=== PATIENT | female | born 1970 | race Caucasian/White ===

== ENCOUNTER 2020-03-28 15:02 | Inpatient (IN) | payer OTHER, MEDICAID ==
[2020-03-28] MEDS ORDERED: Azithromycin 250 MG TAB ONE (16:32)
[2020-03-28] MEDS ORDERED: Magnesium 2 GM/50 ML BAG (IN WATER) ONE (16:32)
[2020-03-28] MEDS ORDERED: Acetaminophen 325 MG TAB ONE (16:32)
[2020-03-28] MEDS ORDERED: predniSONE 20 MG TAB ONE (16:32)
[2020-03-28] MEDS ORDERED: cefTRIAXone\\ROCEPHIN 2 GM VIAL ONE (16:32)
[2020-03-28] MEDS ORDERED: Ibuprofen 200 MG TAB ONE (16:32)
--- NOTE | 2020-03-28 17:02 | RAD ---
EXAM: CHEST ONE VIEW: 03/28/20 HISTORY: COPD. Low O2 saturation, vomiting, diarrhea. Poor inspiratory effort with some minimal vascular crowding in the mid and lower lung zones. Heart si ze is borderline enlarged. No confluent lobar pneumonia, acute edema, or significant pleural effusion . IMPRESSION: Poor inspiratory effort with some mild vascular crowding in the bases. No significant acute process. POS: RRE
[2020-03-28 17:17] LABS: #Eosinphils 0.4 thou/uL (0.0-0.7); #Lymphocytes 2.1 thou/uL (1.20-3.40); #Monocytes 0.5 thou/uL (0.11-0.59); #Neutrophils 4.7 thou/uL (1.40-6.50); %Basophils 0.6 % (0.0-1.0); %Eosinophils 5.7 % (0.0-10.0); %Lymphocytes 26.4 % (21.0-51.0); %Monocytes 6.7 % (0.0-10.0); %Neutrophils 60.7 % (42.0-75.0); Mean Corpuscular HGB CONC 31.6 g/dL (32.0-36.0); Mean Corpuscular Hemoglobin 28.5 pg (27.0-31.0); Mean Platelet Volume 10.4 fL (7.4-10.4); Platelet Count 139 thou/uL (130-400); RBC Distribution Width 15.5 % (11.5-14.5); Red Blood Cell (RBC) Count 5.98 mill/uL (4.20-5.40); White Blood Cell (WBC) Count 7.8 thou/uL (4.8-10.8)
--- NOTE | 2020-03-28 17:28 | CT ---
CT OF BRAIN PERFORMED WITHOUT CONTRAST ENHANCMENT: 03/28/20 HISTORY: Headache. There is motion artifact on this examination. The ventricular and cisternal system is within normal l imits. There are no signs of intracerebral hemorrhage or extra-axial fluid collections. The mastoid a ir cells are clear. There is extensive opacification of the ethmoid air cells. Also, bilateral maxill lopez sinus mucosal disease. IMPRESSION: 1. Maxillary and ethmoid sinus disease. 2. No acute intracranial abnormalities. POS: ODELL
[2020-03-28 17:52] LABS: ALT (SGPT) 13 U/L (8-55); AST (SGOT) 13 U/L (5-34); Albumin 4.2 g/dL (3.5-5.0); Alkaline Phosphatase 134 U/L (40-110); Anion Gap 16 mmol/L (10-20); BUN (Urea Nitrogen) 11 mg/dL (7.0-18.7); Bilirubin, Total 0.2 mg/dL (0.2-1.2); Calc. Creatinine Clearance 0 mL/min (70-130); Carbon Dioxide 27 mmol/L (22-29); Chloride 101 mmol/L (98-107); Estimated GFR-MDRD 77; Globulin 3.6 g/dL (2.4-3.5); Glucose 105 mg/dL (70-105); Potassium 4.3 mmol/L (3.5-5.1); Protein, Total 7.8 g/dL (6.0-8.3); Sodium 140 mmol/L (136-145)
--- NOTE | 2020-03-28 17:55 | PDOC.FPRHP ---
- History of Present Illness Chief Complaint: Dyspnea History of Present Illness: This is a 49yo F with PMH significant for COPD on 2 L of O2 at home presenting to the ER with CC of worsening cough and SOB. She states symptoms started about a week ago. She reports that her chronic COPD is poorly controlled. She reports cough that is non -productive. Characterizes symptoms as tightness in her chest , cough, wheezing, feeling overall poor. Endorses taking inhaler medications daily as well as flonase. She has a nebulizer for as needed. Unsure which inhaler/nebulizer medications she takes. Symptoms are worsened with walking. Denies fever or chills. Endorses severe headache as well that she states she gets every time she gets sick. Denies any chest pain. Endorses nausea, vomiting , diarrhea that started 1 day ago. She states she has a "problem" with this anyway but she seemed to have more of this over the last 2 days. Denies any sore throat, COVID exposure of contacts. Has been travelling to [place] and [place] in an RV. has not been feeling sick at all. He puts alarms for the shelter. Smokes less than 1/2 pack/day for 30 years - she has been trying to cut back. Patient is from [place]. ED Course: tylenol 650mg, ibuprofen 600mg, rocephin 2g IV, azithromycin 500mg, prednisone 60mg, Mg 2g IV, duoneb 3mL - Allergies/Adverse Reactions Allergies Allergy/AdvReac Type Severity Reaction Status Date / Time codeine Allergy Unknown Unverified 03/28/20 19:36 - History PMHx: COPD, MA x 1 s/p stent, HLD, HTN, JJ, bipolar, borderline personality, anxiety PSHx: c -section, tubal ligation FHx: non-contributory Social: current tobacco user - smokes 1/2 pack/day for 30 years; denies alcohol or drug use. Allergies: codeine - Review of Systems General: denies: fever/chills, weight/appetite/sleep changes, night sweats, fatigue ENT: denies: nasal congestion, rhinorrhea Respiratory: reports: cough, shortness of breath, exercise intolerance. denies : congestion Cardiovascular: denies: chest pain, palpitation, edema, paroxysmal nocturnal dyspnea, orthopnea Gastrointestinal: denies: nausea, vomiting, diarrhea, constipation, abdominal pain Skin: denies: rashes Musculoskeletal: denies: pain, tenderness Neurological: denies: weakness Psychological: reports: anxiety - Vital signs BP: 141/102 HR: 90 RR: 20 Tmax: 98.5 Pox: 90% on 4L Wt: 102 kg - Physical Exam -Constitutional: mild distress HEENT: normocephalic and atraumatic, PERRLA, EOMI Neck: FROM, no JVD Heart: RRR, normal S1/S2, no murmurs/rubs/gallops, pulses present -Lungs: diffuse wheezes heard bilaterally; poor inspiratory effort Abdomen: soft, non-tender, bowel sounds present, no masses/distention Musculoskeletal: normal structure, ROM grossly normal Neurological: no focal deficit Skin: no rash/lesions, good turgor, capillary refill <2 seconds Heme/Lymphatic: no purpura, no petechia Psychiatric: normal mood and affect -Psychiatric: Pt is alert and oriented but she is having difficulty with word finding, she endorsed being confused, she follows commands FMR H&P: Results - Labs Result Diagrams: 03/28/20 17:02 03/28/20 17:02 Lab results: WBC 7.8 thou/uL (4.8-10.8) 03/28/20 17:02 Hgb 17.0 g/dL (12.0-16.0) H 03/28/20 17:02 Hct 53.8 % (36.0-47.0) H 03/28/20 17:02 MCV 90.0 fL (78.0-98.0) 03/28/20 17:02 Plt Count 139 thou/uL (130-400) 03/28/20 17:02 Neutrophils % 60.7 % (42.0-75.0) 03/28/20 17:02 Sodium 140 mmol/L (136-145) 03/28/20 17:02 Potassium 4.3 mmol/L (3.5-5.1) 03/28/20 17:02 Chloride 101 mmol/L (98-107) 03/28/20 17:02 Carbon Dioxide 27 mmol/L (22-29) 03/28/20 17:02 BUN 11 mg/dL (7.0-18.7) 03/28/20 17:02 Creatinine 0.79 mg/dL (0.6-1.1) 03/28/20 17:02 Glucose 105 mg/dL (70-105) 03/28/20 17:02 Calcium 9.0 mg/dL (7.8-10.44) 03/28/20 17:02 Total Bilirubin 0.2 mg/dL (0.2-1.2) 03/28/20 17:02 AST 13 U/L (5-34) 03/28/20 17:02 ALT 13 U/L (8-55) 03/28/20 17:02 Alkaline Phosphatase 134 U/L (40-110) H 03/28/20 17:02 Serum Total Protein 7.8 g/dL (6.0-8.3) 03/28/20 17:02 Albumin 4.2 g/dL (3.5-5.0) 03/28/20 17:02 - EKG Interpretation EKG: NSR - Radiology Interpretation Chest x-ray Status: image reviewed by me, report reviewed by me Additional comment: No acute processes, vascular crowding in the bases CT scan - head Status: image reviewed by me, report reviewed by me Additional comment: Sinus disease, no acute brain abnormalities FMR H&P: A/P - Problem List (1) COPD exacerbation Current Visit: Yes Status: Acute Code(s): J44.1 - CHRONIC OBSTRUCTIVE PULMONARY DISEASE W (ACUTE) EXACERBATION (2) Bipolar disorder Current Visit: Yes Status: Acute Code(s): F31.9 - BIPOLAR DISORDER, UNSPECIFIED (3) Anxiety Current Visit: Yes Status: Acute Code(s): F41.9 - ANXIETY DISORDER, UNSPECIFIED (4) HLD (hyperlipidemia) Current Visit: Yes Status: Acute Code(s): E78.5 - HYPERLIPIDEMIA, UNSPECIFIED (5) HTN (hypertension) Current Visit: Yes Status: Acute Code(s): I10 - ESSENTIAL (PRIMARY) HYPERTENSION (6) CAD (coronary artery disease) Current Visit: Yes Status: Acute Code(s): I25.10 - ATHSCL HEART DISEASE OF [place] CORONARY ARTERY W/O ANG PCTRS (7) Tobacco abuse Current Visit: Yes Status: Acute Code(s): Z72.0 - TOBACCO USE - Plan Pt is a 49 yo female here for a COPD exacerbation: # COPD Exacerbation Allergies vs Smoking vs COVID - ceftriaxone, azithromycin - prednisone daily x 5 days min - give magnesium if necessary - duoneb q4 scheduled, q2 prn - restart home medications - start montelukast as pt is not from area can could be secondary to allergies - COVID pending, pending Ferritin, LDH, CRP; consider D-Dimer # Headache - tylenol - headache protocol, bolus fluid # HTN - continue home meds # HLD - pt needs to start statin therapy # CAD - continue home meds, start statin therapy # Anxiety - continue home meds # Bipolar - continue home meds Dispo: admit inpatient telemetry Fluids: LR 120 mls/hr Diet: HH VTE: lovenox Code: DNR FMR H&P: Upper Level - Plan Date/Time: 03/28/201753 IRebekah, have evaluated this patient and agree with findings/plan as outlined by sports management intern resident. Pertinent changes/additions are listed here. This is a 49yo F with PMH significant for uncontrolled COPD on 2L home O2. She states that she has had worsening SOB and cough over the last week. She started with symptoms last week with cough and sneezing. Of note, she is from [place] and has been traveling across the country with her in an RV - whom works putting alarm systems in jails. She endorses non-productive cough. Denies fever. Endorses chills. States has not had any symptoms. Patient has been in [facility] for the last 4 weeks or so. She also endorse NVD over the last few days. She states she has been taking inhaler/neb medications at home, but patient was unsure what medications she was on. She is long time smoker. Patient reports that she has had exacerbations of COPD in the past but this one seems worse. She also states that she usually gets confused when she is sick. Endorses headache. Please see sports management intern note for full history and past medical histories. ROS negative besides those mentioned above. PE: General: mild distress, obese Resp: bilateral diffuse wheezing on insp/exp; poor inspiratory efforts Cardio: RRR, no murmurs, rubs or gallops Abd: soft, non distended, central obesity MSK: FROM Psych: alert, knows name, place, time, but seems confused as to condition/ medications/other details of story. Poor insight and judgement. A&P: Admit patient to tele, inpatient for COPD exacerbation with hx of MA. Will treat COPD exacerbation with duonebs q4hr JOHN, prednisone x 5 days, azithromycin and rocephin for abx coverage. Procal pending. Can consider discontinuing if negative Increased O2 requirement per ER, but no recorded hypoxia. Home O2 2L and satting 93% on 4L in the ER. Will continue to monitor and ween as tolerated. Keep O2 sats between 88-92%. ABG pending due to patient clinical appearance. 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 COVID swab pending along with ferritin, LDH, CRP, no lymphopenia noted. Droplet precautions until swab results. For patient's confusion on exam - CT head negative, but will add UDS and alcohol to rule this out. ABG pending as well. Patient hemoconcentrated - will give a 1L bolus and continue maintenance. Continue home medications for chronic conditions. Patient DNR/DNI - discussed at length with patient who re-iterated this decision. Case discussed with Dr. Hernandez Addendum - Attending - Attending Attestation Date/Time: 03/28/20 3386 I personally evaluated the patient and discussed the management with Dr. Mendoza and Dr. Salamanca I agree with the History, Examination, Assessment and Plan documented above with any addition or exceptions noted below. 49 yo female with multiple chronic conditions especially end-stage COPD and cardiovascular disease presents to ER for progressive illness over the past wk. Initially symptoms started 3 wks ago. Symptoms have included fatigue, fever, SOB , nausea, diarrhea, headache, malise. Her and her are from out of town. Have been here for 1 month due to his job. No prior medical care this pass month. Today reported N/V and diarrhea were too much for her to continue to deal with at home. Reported her main concern today was not SOB. Denied sputum but reports cough. Solument on exam for me. VS, labs, and imaging reviewed. Requiring 4 L O2 via NC - COPD exacerbation: End stage. Continue inhalers. John DUO neb inhaler equivalent - combivent. Continue antibiotics. Adjust O2 as indicated. Hx of COPD with possible asthma component as well. - Acute on chronic respiratory failure: ABG ordered. Concern for chronic CO2 retainer with acute worsening due to solumnent state. Is easily arrousable but falls asleep during questioning. States this is very common for her when she is admitted. Adamant about DNR status. Has concerns about BiPAP if needed. Repeat ABG as needed. - Untreated JJ: Complicating acute respiratory problems. Now with headache. - COVID19 PUI: No directly known exposure but risk present. Concerning symptoms. COVID swab ordered. Will need to discuss BiPAP policy with ICU director to see if okay to use. Needs droplet and contact precautions. Per patient symptoms have been progressive over the past 3 wks and significant changes over the past week. Out of window for treatment? - Cardiovascular dz: Monitor. Trend trop. Adjust home meds as needed. - ppx: lovenox and PPI due to risk. - Consult pulm - admit to [facility]
[2020-03-28 18:14] LABS: CKMB 1.1 ng/mL (0-6.6)
[2020-03-28] MEDS ORDERED: Albuterol 200 PUFF (6.7GM INHALER) INH PRN (19:39)
[2020-03-28] MEDS ORDERED: Lactated Ringer's 1,000 ML IV SCH ×2 (19:45)
[2020-03-28] MEDS ORDERED: Ondansetron PF 4 MG/2 ML Vial ONE (19:55)
[2020-03-28] MEDS ORDERED: Aspirin Chewable 81 MG TAB ONE (19:55)
[2020-03-28] MEDS ORDERED: Ondansetron ORAL SOLN. 4 MG/5 ML UDCUP PO PRN (20:50)
[2020-03-28] MEDS ORDERED: Ketorolac Tromethamine 10 MG TAB PO SCH (21:00)
[2020-03-28] MEDS ORDERED: Dextrose 5%-Lactated Ringers 1,000 ML IV SCH (21:30)
[2020-03-28 21:32] LABS: Analyzer IN Cardio ER; Base Excess (BEa) 1.2 mEq/L (-2.0 to +3.0); Calcium, Ionized (arterial) 1.23 mmol/L (1.12-1.30); Carboxyhemoglobin (COHb) 5.7 gm% (0.0-3.0); Hemoglobin (Hb) 17.3 g/dL (12.0-16.0); Potassium - ABG Lab 4.44 mmol/L (3.70-5.30)
[2020-03-28 21:33] LABS: CO2 Tension 78.8 mmHg (35.0-45.0); O2 Tension (PaO2), arterial 54.5 mmHg (80.0-100.0); pH, Arterial 7.23 (7.35-7.45)
[2020-03-28 21:49] LABS: Troponin I 0.033 ng/mL (< 0.028)
[2020-03-28] MEDS ORDERED: Lorazepam 2 MG/ML VIAL ONE (22:34)
[2020-03-29] MEDS ORDERED: cefTRIAXone Sodium 1 MG in Syringe 0 ML IVPB SCH (00:07)
[2020-03-29] MEDS ORDERED: Enoxaparin Sodium 40 MG/0.4 ML SYRINGE SC SCH (00:15)
[2020-03-29] MEDS ORDERED: Montelukast Sodium 10 mg Tablet PO SCH ×2 (00:15→21:00)
[2020-03-29] MEDS: Lactated Ringer's 1,000 ML IV SCH ×4 (00:20→23:10)
[2020-03-29 00:32] VITALS: BMI 33.9
[2020-03-29 00:49] LABS: Troponin I 0.033 ng/mL (< 0.028)
[2020-03-29 03:31] LABS: #Eosinphils 0.1 thou/uL (0.0-0.7); #Lymphocytes 1.3 thou/uL (1.20-3.40); #Monocytes 0.2 thou/uL (0.11-0.59); #Neutrophils 6.2 thou/uL (1.40-6.50); %Basophils 0.4 % (0.0-1.0); %Eosinophils 0.9 % (0.0-10.0); %Lymphocytes 16.7 % (21.0-51.0); %Monocytes 3.1 % (0.0-10.0); %Neutrophils 78.9 % (42.0-75.0); Hemoglobin 15.8 g/dL (12.0-16.0); Mean Corpuscular HGB CONC 30.9 g/dL (32.0-36.0); Mean Corpuscular Volume 90.5 fL (78.0-98.0); Mean Platelet Volume 10.5 fL (7.4-10.4); Platelet Count 130 thou/uL (130-400); RBC Distribution Width 15.8 % (11.5-14.5); Red Blood Cell (RBC) Count 5.63 mill/uL (4.20-5.40); White Blood Cell (WBC) Count 7.9 thou/uL (4.8-10.8)
[2020-03-29 04:09] LABS: ALT (SGPT) 10 U/L (8-55); AST (SGOT) 15 U/L (5-34); Albumin 3.6 g/dL (3.5-5.0); Alkaline Phosphatase 115 U/L (40-110); Anion Gap 15 mmol/L (10-20); BUN (Urea Nitrogen) 10 mg/dL (7.0-18.7); Bilirubin, Total Less than 0.2 mg/dL (0.2-1.2); Calc. Creatinine Clearance 157 mL/min (70-130); Calcium 9.2 mg/dL (7.8-10.44); Carbon Dioxide 27 mmol/L (22-29); Chloride 99 mmol/L (98-107); Estimated GFR-MDRD 90; Globulin 3.9 g/dL (2.4-3.5); Glucose 103 mg/dL (70-105); Potassium 5.1 mmol/L (3.5-5.1); Protein, Total 7.5 g/dL (6.0-8.3); Sodium 136 mmol/L (136-145)
[2020-03-29] MEDS ORDERED: Nitroglycerin 50 MG/250 ML BOT 250 ML IVPB SCH (06:30)
[2020-03-29 06:46] LABS: Amphetamine Not Detected (NotDetected); Barbiturates Screen Not Detected (NotDetected); Benzodiazepine Screen Detected (NotDetected); Cocaine Metabolite Screen Not Detected (NotDetected); Medtox Control Line Valid? VALID (VALID); Medtox Reader # READER 4; Methadone Not Detected (NotDetected); Methamphetamine Not Detected (NotDetected); Opiate Screen Not Detected (NotDetected); Oxycodone Screen Not Detected (NotDetected); Phencyclidine (PCP) Not Detected (NotDetected); THC/Cannabinoid Screen Detected (NotDetected); Tricyclic Screen Detected (NotDetected)
--- NOTE | 2020-03-29 07:28 | PDOC.FM ---
- Subjective Subjective: Pt states her breathing is about the same. She denies productive cough but does state she has been coughing more. - Objective MAR Reviewed: Yes Vital Signs & Weight: Vital Signs (12 hours) Temp Pulse Ox 03/29/20 00:46 94 L 03/29/20 00:00 97.2 F L Weight Weight 101.151 kg Most Recent Monitor Data Heart Rate from ECG 102 NIBP 178/103 NIBP BP-Mean 128 Respiration from ECG 23 SpO2 91 Result Diagrams: 03/29/20 03:03 03/29/20 03:03 Phys Exam - Physical Examination Mild distress HEENT: moist MMs Neck: no JVD Inspiratory and expiratory wheezing anteriorly, worse on the left Cardiovascular: RRR, no significant murmur Gastrointestinal: soft, no distention, positive bowel sounds Mild tenderness to palpation on the right side, no rebound Musculoskeletal: no edema, pulses present Neurological: moves all 4 limbs Psychiatric: A&O x 3 Skin: cap refill <2 seconds Dx/Plan (1) Anxiety Code(s): F41.9 - ANXIETY DISORDER, UNSPECIFIED Status: Acute (2) Bipolar disorder Code(s): F31.9 - BIPOLAR DISORDER, UNSPECIFIED Status: Acute (3) CAD (coronary artery disease) Code(s): I25.10 - ATHSCL HEART DISEASE OF [place] CORONARY ARTERY W/O ANG PCTRS Status: Acute (4) COPD exacerbation Code(s): J44.1 - CHRONIC OBSTRUCTIVE PULMONARY DISEASE W (ACUTE) EXACERBATION Status: Acute (5) HLD (hyperlipidemia) Code(s): E78.5 - HYPERLIPIDEMIA, UNSPECIFIED Status: Acute (6) HTN (hypertension) Code(s): I10 - ESSENTIAL (PRIMARY) HYPERTENSION Status: Acute (7) Tobacco abuse Code(s): Z72.0 - TOBACCO USE Status: Acute - Plan Plan: COPD exacerbation -Continue prednisone -Procal negative, will discontinue abx for now -Continue duonebs, Bipab -After med rec, restart home inhalers -Continue montelukast -Covid Pending Headache -S/P tylenol, ibuprofen, fluids, mag -Would consider reglan and benadryl if unimproved Mild abdominal pain -Pt has history of diarrhea and constipation, may be IBS HTN -Will continue home medications HLD -Now on atorvastatin CAD -Continue home meds Anxiety -Continue home meds Bipolar disorder -Continue home meds Addendum - Attending - Attending Attestation Date/Time: 03/29/20 6250 I personally evaluated the patient and discussed the management with Dr. Berg. I agree with the History, Examination, Assessment and Plan documented above with any addition or exceptions noted below. Patient here for acute hypoxic hypercapneic resp failure 2/2 COPD exacerbation. This could also be related to COVID, swab pending. She is now back on Bipap as mentation was worsening and increasing somnolence. Continue respiratory support and steroids, breathing treatments. Continue abx. Pulm consult.
[2020-03-29] MEDS: Enoxaparin Sodium 40 MG/0.4 ML SYRINGE SC SCH (08:01)
[2020-03-29] MEDS: Lisinopril 10 MG TAB PO SCH (08:01)
[2020-03-29] MEDS: Aspirin 81 mg Enteric Coated Tablet PO SCH (08:01)
[2020-03-29] MEDS ORDERED: Azithromycin 250 MG TAB PO SCH (09:00)
[2020-03-29] MEDS ORDERED: predniSONE 20 MG TAB PO SCH (09:00)
[2020-03-29] MEDS: Ondansetron ODT 4 MG TAB PO PRN ×2 (09:04→21:11)
[2020-03-29 10:49] LABS: Actual Bicarbonate (HCO3a) 35.5 mEq/L (22-28); Base Excess (BEa) 5.4 mEq/L (-2.0 to +3.0); Calcium, Ionized (arterial) 1.23 mmol/L (1.12-1.30); Carboxyhemoglobin (COHb) 3.3 gm% (0.0-3.0); Hemoglobin (Hb) 16.3 g/dL (12.0-16.0); Potassium - ABG Lab 4.03 mmol/L (3.70-5.30); pH, Arterial 7.28 (7.35-7.45)
[2020-03-29 10:53] LABS: CO2 Tension 77.2 mmHg (35.0-45.0); O2 Tension (PaO2), arterial 55.7 mmHg (80.0-100.0)
[2020-03-29 10:54] LABS: Puncture Site RR
[2020-03-29] MEDS ORDERED: Azithromycin 500 MG in Sodium Chloride 0.9% 250 ML 250 ML IVPB SCH (11:30)
[2020-03-29] MEDS: methylPREDNISolone Sod Succ 40 MG VIAL IVP SCH ×3 (11:41→23:04)
--- NOTE | 2020-03-29 11:45 | CON ---
DATE OF CONSULTATION: 03/29/2020 CONSULTING PHYSICIAN: [employer]. REASON FOR CONSULTATION: COPD exacerbation. HISTORY OF PRESENT ILLNESS: The patient is a 49-year-old female, who is from near [place], [place]. She came to the hospital because of increasing shortness of breath over the last one week. She is currently in town with her , who is involved in the construction project at the [facility]. She denies any COVID exposure. She is a heavy smoker. She was diagnosed with COPD several years ago. Currently smokes about one-half pack per day and has been trying to quit. She is on oxygen intermittently at 2 L nasal cannula. She uses a Ventolin metered-dose inhaler at home. PAST MEDICAL HISTORY: 1. Chronic obstructive pulmonary disease. 2. Myocardial infarction. 3. Hyperlipidemia. 4. Hypertension. 5. Obesity. 6. JJ. 7. Bipolar disorder. 8. Anxiety. PAST SURGICAL HISTORY: 1. . 2. Tubal ligation. FAMILY MEDICAL HISTORY: Unremarkable. SOCIAL HISTORY: Smoking history as outlined above. Occasionally smokes marijuana. Does not consume alcohol. Does not use illicit drugs except for marijuana. ALLERGIES: CODEINE. REVIEW OF SYSTEMS: Twelve-point review of systems is otherwise negative. PHYSICAL EXAMINATION: VITAL SIGNS: Temperature 97.7, pulse 105, blood pressure 175/102, and O2 saturation 94%. GENERAL: She is a morbidly obese female, who is on nasal cannula. She talks comfortably. She is in no acute distress. HEENT: Pupils are round. Sclerae anicteric. Oropharynx class IV Mallampati airway. NECK: No adenopathy or JVD. LUNGS: Diffuse wheezing bilaterally. CARDIOVASCULAR: S1 and S2. Regular without murmur. ABDOMEN: Soft and nontender to palpation. EXTREMITIES: No clubbing, cyanosis, or edema. LABORATORY DATA: ABG; pH of 7.28, pCO2 of 77, and pO2 of 56, that was on 3 L nasal cannula. Sodium 136, potassium 5.1, chloride 99, CO2 of 27, BUN 10, creatinine 0.7, and glucose 103. White blood cell count 7.9, hematocrit 50.9, and platelet count 130. Chest x-ray showed no mass, effusion, or infiltrate. ASSESSMENT: 1. Chronic obstructive pulmonary disease exacerbation. 2. Acute hypercapnic respiratory failure. 3. Tobacco abuse. 4. Rule out COVID-19. PLAN: 1. Continue bilevel positive airway pressure as needed. 2. She needs scheduled nebulization treatments, which apparently are being withheld because of her COVID status. 3. IV steroids. 4. Would start the patient on empiric antibiotics with azithromycin. 5. We will follow with you. 6. BiPAP as needed. Job ID: [id number]
[2020-03-29] MEDS: Albuterol 200 PUFF (6.7GM INHALER) INH SCH ×3 (13:00→18:21)
[2020-03-29] MEDS ORDERED: cefTRIAXone\\ROCEPHIN 1 GM in Sodium Chloride 0.9% 100 ML IVPB SCH (17:00)
[2020-03-29] MEDS ORDERED: Atorvastatin Calcium 40 MG TAB PO SCH (21:00)
[2020-03-29] MEDS: Acetaminophen 500 MG TAB PO PRN (23:03)
[2020-03-30] MEDS ORDERED: Dicyclomine 20 MG TAB PO SCH (01:30)
[2020-03-30] MEDS ORDERED: Polyethylene Glycol 3350 17 GM Packet PO PRN (03:04)
[2020-03-30] MEDS: Ondansetron ODT 4 MG TAB PO PRN (03:12)
[2020-03-30 03:34] LABS: #Lymphocytes 1.2 thou/uL (1.20-3.40); #Monocytes 0.1 thou/uL (0.11-0.59); #Neutrophils 8.7 thou/uL (1.40-6.50); %Eosinophils 0.1 % (0.0-10.0); %Monocytes 1.3 % (0.0-10.0); %Neutrophils 86.6 % (42.0-75.0); Mean Corpuscular HGB CONC 33.9 g/dL (32.0-36.0); Mean Corpuscular Hemoglobin 29.6 pg (27.0-31.0); Mean Corpuscular Volume 87.3 fL (78.0-98.0); Mean Platelet Volume 12.6 fL (7.4-10.4); Platelet Count 190 thou/uL (130-400); RBC Distribution Width 15.5 % (11.5-14.5)
[2020-03-30 03:54] LABS: ALT (SGPT) 11 U/L (8-55); AST (SGOT) 13 U/L (5-34); Albumin 3.8 g/dL (3.5-5.0); Alkaline Phosphatase 111 U/L (40-110); Anion Gap 15 mmol/L (10-20); BUN (Urea Nitrogen) 14 mg/dL (7.0-18.7); Bilirubin, Total 0.3 mg/dL (0.2-1.2); Calc. Creatinine Clearance 145 mL/min (70-130); Calcium 9.3 mg/dL (7.8-10.44); Carbon Dioxide 32 mmol/L (22-29); Chloride 94 mmol/L (98-107); Estimated GFR-MDRD 82; Globulin 3.7 g/dL (2.4-3.5); Glucose 142 mg/dL (70-105); Potassium 3.6 mmol/L (3.5-5.1); Protein, Total 7.5 g/dL (6.0-8.3); Sodium 137 mmol/L (136-145)
[2020-03-30] MEDS ORDERED: Lidocaine 2% Viscous Solution 20 ML, Aluminum & Magnesium Hydroxide 30 ML, Donnatal Eli... SSW SCH (04:15)
[2020-03-30] MEDS: Promethazine HCl 12.5 MG in Sodium Chloride 0.9% 50 ML IVPB PRN ×2 (04:29→22:00)
[2020-03-30] MEDS: methylPREDNISolone Sod Succ 40 MG VIAL IVP SCH ×3 (05:08→19:50)
--- NOTE | 2020-03-30 06:17 | PDOC.FM ---
- Subjective Subjective: Pt has had nausea, vomiting, and abdominal pain overnight. Despite multiple medications, she has continued pain. Her respiratory status is improved. - Objective MAR Reviewed: Yes Vital Signs & Weight: Vital Signs (12 hours) Temp Pulse Ox 03/30/20 04:00 98.8 F 03/30/20 00:00 97.9 F 03/29/20 20:00 98.8 F 90 L Weight Weight 103.283 kg Most Recent Monitor Data Heart Rate from ECG 85 NIBP 161/102 NIBP BP-Mean 121 Respiration from ECG 11 SpO2 97 I&O: 03/28/20 03/29/20 03/30/20 06:59 06:59 06:59 Intake Total 3880 Output Total 900 Balance 2980 Result Diagrams: 03/30/20 03:01 03/30/20 03:01 Phys Exam - Physical Examination Mild distress HEENT: moist MMs Neck: no JVD Diffuse wheezing, improved inspiratory wheezing Cardiovascular: RRR, no significant murmur Gastrointestinal: soft, no distention, positive bowel sounds Tender to palpation, worse on right side Musculoskeletal: pulses present, edema present (trace edema) Psychiatric: A&O x 3 Skin: cap refill <2 seconds Dx/Plan (1) Anxiety Code(s): F41.9 - ANXIETY DISORDER, UNSPECIFIED Status: Acute (2) Bipolar disorder Code(s): F31.9 - BIPOLAR DISORDER, UNSPECIFIED Status: Acute (3) CAD (coronary artery disease) Code(s): I25.10 - ATHSCL HEART DISEASE OF [place] CORONARY ARTERY W/O ANG PCTRS Status: Acute (4) COPD exacerbation Code(s): J44.1 - CHRONIC OBSTRUCTIVE PULMONARY DISEASE W (ACUTE) EXACERBATION Status: Acute (5) HLD (hyperlipidemia) Code(s): E78.5 - HYPERLIPIDEMIA, UNSPECIFIED Status: Acute (6) HTN (hypertension) Code(s): I10 - ESSENTIAL (PRIMARY) HYPERTENSION Status: Acute (7) Tobacco abuse Code(s): Z72.0 - TOBACCO USE Status: Acute - Plan Plan: COPD exacerbation -Continue prednisone -Azithromycin -Continue duonebs and respiratory support -Continue montelukast -Covid Pending Headache -S/P tylenol, ibuprofen, fluids, mag -Would consider reglan and benadryl if unimproved Mild abdominal pain -Adding morphine this AM, will obtain lactic acid and lipase -Possible RUQ US pending lab results HTN -Will continue home medications HLD -Now on atorvastatin CAD -Continue home meds Anxiety -Continue home meds Bipolar disorder -Continue home meds Addendum - Attending - Attending Attestation Date/Time: 03/30/20 1007 I personally evaluated the patient and discussed the management with Dr. Berg. I agree with the History, Examination, Assessment and Plan documented above with any addition or exceptions noted below.
[2020-03-30] MEDS ORDERED: Morphine 4 MG/ML VIAL SLOW IVP SCH (07:30)
[2020-03-30] MEDS: Albuterol 200 PUFF (6.7GM INHALER) INH SCH ×6 (07:31→23:21)
[2020-03-30] MEDS: DULoxetine 60 MG CAP PO SCH ×2 (08:43→20:07)
[2020-03-30] MEDS: busPIRone HCl 10 MG TAB PO SCH ×2 (08:43→20:07)
[2020-03-30] MEDS: Lisinopril 10 MG TAB PO SCH (08:43)
[2020-03-30] MEDS: Montelukast Sodium 10 mg Tablet PO SCH (08:43)
[2020-03-30] MEDS: Aspirin 81 mg Enteric Coated Tablet PO SCH (08:43)
[2020-03-30] MEDS: Azithromycin 250 MG in Sodium Chloride 0.9% 250 ML 250 ML IVPB SCH (08:44)
[2020-03-30] MEDS: Enoxaparin Sodium 40 MG/0.4 ML SYRINGE SC SCH (08:45)
[2020-03-30] MEDS: Fluticasone Propionate Nasal Spray 16 gm Bottle NASAL SCH (08:45)
[2020-03-30] MEDS: Propranolol 40 MG TAB PO SCH ×2 (08:46→20:02)
[2020-03-30] MEDS: Prazosin HCl 1 MG CAP PO SCH ×2 (08:46→20:08)
[2020-03-30] MEDS ORDERED: Furosemide 40 MG TAB PO SCH (09:00)
[2020-03-30] MEDS ORDERED: Atorvastatin Calcium 40 MG TAB PO SCH (09:00)
--- NOTE | 2020-03-30 09:56 | PRG ---
DATE OF SERVICE: 03/30/2020 SUBJECTIVE: The patient is off BiPAP today. She says she is breathing about the same she was yesterday. COVID-19 test was not resulted. OBJECTIVE: VITAL SIGNS: Temperature 98.3, pulse 89, blood pressure 161/98, O2 saturation 95%. HEENT: Clear. NECK: No adenopathy or JVD. LUNGS: With diffuse wheezing. CARDIAC: S1 and S2. Regular. ABDOMEN: Soft. EXTREMITIES: No edema. LABORATORY DATA: White blood cell count 10, hematocrit 47.2, and platelet count 190. Sodium 137, potassium 3.6, chloride 94, CO2 of 32, BUN 14, creatinine 0.7, glucose 142. ASSESSMENT: 1. Chronic obstructive pulmonary disease with exacerbation. 2. Rule out COVID-19 infection. 3. Tobacco and marijuana abuse. PLAN: 1. Continue steroids and nebs. 2. I would advise limiting furosemide use as she has likely developed a contraction alkalosis and a compensatory respiratory acidosis from that. If a diuretic as needed, we would recommend Diamox. 3. Once her COVID-19 test is back, you can switch her albuterol HFA inhaler to nebulization treatments. Job ID: [id number]
[2020-03-30 12:19] LABS: SARS-CoV-2 MS2 Positive; SARS-CoV-2 N Gene Negative; SARS-CoV-2 S Gene Negative; SARS-CoV-2 orf1ab Negative
[2020-03-30] MEDS: Morphine 4 MG/ML VIAL SLOW IVP PRN ×2 (15:21→22:01)
[2020-03-30 17:20] LABS: Lactic Acid 1.5 mmol/L (0.5-2.2)
[2020-03-30] MEDS: levETIRAcetam 500 MG TAB PO SCH (19:53)
[2020-03-30] MEDS: Gabapentin 300 MG CAP PO SCH (20:07)
[2020-03-30] MEDS: Atorvastatin Calcium 40 MG TAB PO SCH (20:07)
[2020-03-31] MEDS: Acetaminophen 500 MG TAB PO PRN (00:42)
[2020-03-31] MEDS: methylPREDNISolone Sod Succ 40 MG VIAL IVP SCH ×5 (00:59→23:33)
[2020-03-31] MEDS: Albuterol 200 PUFF (6.7GM INHALER) INH SCH ×6 (02:57→22:56)
[2020-03-31 05:56] LABS: #Lymphocytes 0.9 thou/uL (1.20-3.40); #Monocytes 0.3 thou/uL (0.11-0.59); %Basophils 0.3 % (0.0-1.0); %Eosinophils 0.2 % (0.0-10.0); %Lymphocytes 9.7 % (21.0-51.0); %Neutrophils 86.9 % (42.0-75.0); Mean Corpuscular HGB CONC 32.1 g/dL (32.0-36.0); Mean Corpuscular Hemoglobin 28.8 pg (27.0-31.0); Mean Corpuscular Volume 89.7 fL (78.0-98.0); Mean Platelet Volume 10.6 fL (7.4-10.4); Platelet Count 138 thou/uL (130-400); RBC Distribution Width 15.5 % (11.5-14.5); Red Blood Cell (RBC) Count 5.21 mill/uL (4.20-5.40); White Blood Cell (WBC) Count 9.2 thou/uL (4.8-10.8)
[2020-03-31 06:19] LABS: ALT (SGPT) 9 U/L (8-55); AST (SGOT) 10 U/L (5-34); Albumin 3.6 g/dL (3.5-5.0); Alkaline Phosphatase 85 U/L (40-110); Anion Gap 9 mmol/L (10-20); BUN (Urea Nitrogen) 19 mg/dL (7.0-18.7); Bilirubin, Total Less than 0.2 mg/dL (0.2-1.2); Calc. Creatinine Clearance 146 mL/min (70-130); Calcium 8.7 mg/dL (7.8-10.44); Carbon Dioxide 34 mmol/L (22-29); Chloride 99 mmol/L (98-107); Estimated GFR-MDRD 81; Globulin 3.1 g/dL (2.4-3.5); Glucose 143 mg/dL (70-105); Potassium 4.4 mmol/L (3.5-5.1); Protein, Total 6.7 g/dL (6.0-8.3); Sodium 138 mmol/L (136-145)
--- NOTE | 2020-03-31 06:26 | PDOC.FM ---
- Subjective Subjective: Pt states that her breathing is improved this morning. She denies chest pain but does report some SOB with walking. She continues to complain of abdominal pain. She states it is a chronic issue and she has had EGD and Colonoscopy with no results. She states she just wants to be comfortable. - Objective MAR Reviewed: Yes Vital Signs & Weight: Vital Signs (12 hours) Temp Pulse Resp BP BP Pulse Ox 03/31/20 04:16 97.7 F 60 20 103/72 91 L 03/30/20 23:59 97.7 F 80 20 99/64 92 L 03/30/20 20:08 93 L 03/30/20 20:05 144/92 H 03/30/20 19:55 94 L 03/30/20 19:24 98.3 F 78 20 122/78 92 L Weight Weight 103.283 kg Most Recent Monitor Data Heart Rate from ECG 78 NIBP 101/68 NIBP BP-Mean 79 Respiration from ECG 15 SpO2 91 I&O: 03/29/20 03/30/20 03/31/20 06:59 06:59 06:59 Intake Total 3880 1000 Output Total 900 Balance 2980 1000 Result Diagrams: 03/31/20 05:35 03/31/20 05:35 Phys Exam - Physical Examination Constitutional: NAD HEENT: moist MMs Neck: no JVD Respiratory: wheezing present (diffuse, improving air movement) Cardiovascular: RRR, no significant murmur Gastrointestinal: soft, no distention, positive bowel sounds R sided ttp Musculoskeletal: no edema, pulses present Neurological: moves all 4 limbs Psychiatric: A&O x 3 Skin: cap refill <2 seconds Dx/Plan (1) Anxiety Code(s): F41.9 - ANXIETY DISORDER, UNSPECIFIED Status: Acute (2) Bipolar disorder Code(s): F31.9 - BIPOLAR DISORDER, UNSPECIFIED Status: Acute (3) CAD (coronary artery disease) Code(s): I25.10 - ATHSCL HEART DISEASE OF [place] CORONARY ARTERY W/O ANG PCTRS Status: Acute (4) COPD exacerbation Code(s): J44.1 - CHRONIC OBSTRUCTIVE PULMONARY DISEASE W (ACUTE) EXACERBATION Status: Acute (5) HLD (hyperlipidemia) Code(s): E78.5 - HYPERLIPIDEMIA, UNSPECIFIED Status: Acute (6) HTN (hypertension) Code(s): I10 - ESSENTIAL (PRIMARY) HYPERTENSION Status: Acute (7) Tobacco abuse Code(s): Z72.0 - TOBACCO USE Status: Acute - Plan Plan: COPD exacerbation -Continue prednisone -Azithromycin -Continue duonebs and respiratory support -Continue montelukast -Covid negative -May be ready to discharge in 1-2 days Headache -S/P tylenol, ibuprofen, fluids, mag -Would consider reglan and benadryl if unimproved Mild abdominal pain -CT abdomen to assess for causes of her pain -Continue morphine for 2 more doses, transition to PO medication thereafter HTN -Will continue home medications HLD -Now on atorvastatin CAD -Continue home meds Anxiety -Continue home meds Bipolar disorder -Continue home meds
[2020-03-31] MEDS: clonazePAM 1 MG TAB PO SCH ×3 (08:57→22:38)
[2020-03-31] MEDS: Prazosin HCl 1 MG CAP PO SCH ×2 (08:57→21:09)
[2020-03-31] MEDS: Lisinopril 10 MG TAB PO SCH (08:57)
[2020-03-31] MEDS: Propranolol 40 MG TAB PO SCH ×2 (08:58→21:10)
[2020-03-31] MEDS ORDERED: Non-Formulary Item 1 EACH (Clonazepam [Clonazepam] 2 MG) PO SCH (09:00)
[2020-03-31 09:13] LABS: Actual Bicarbonate (HCO3a) 38.4 mEq/L (22-28); Base Excess (BEa) 7.3 mEq/L (-2.0 to +3.0); Calcium, Ionized (arterial) 1.21 mmol/L (1.12-1.30); Carboxyhemoglobin (COHb) 2.1 gm% (0.0-3.0); Hemoglobin (Hb) 15.5 g/dL (12.0-16.0); Potassium - ABG Lab 4.31 mmol/L (3.70-5.30); pH, Arterial 7.26 (7.35-7.45)
[2020-03-31 09:36] LABS: CO2 Tension 88.6 mmHg (35.0-45.0)
[2020-03-31] MEDS: Enoxaparin Sodium 40 MG/0.4 ML SYRINGE SC SCH (09:40)
[2020-03-31] MEDS: Fluticasone Propionate Nasal Spray 16 gm Bottle NASAL SCH (09:40)
[2020-03-31] MEDS: Azithromycin 250 MG in Sodium Chloride 0.9% 250 ML 250 ML IVPB SCH (10:10)
[2020-03-31] MEDS: busPIRone HCl 10 MG TAB PO SCH ×2 (10:56→21:09)
[2020-03-31] MEDS: Aspirin 81 mg Enteric Coated Tablet PO SCH (10:56)
[2020-03-31] MEDS: DULoxetine 60 MG CAP PO SCH ×2 (10:56→21:08)
[2020-03-31] MEDS: Montelukast Sodium 10 mg Tablet PO SCH (10:56)
[2020-03-31] MEDS: Promethazine 25 MG TAB PO SCH ×2 (10:56→21:18)
[2020-03-31] MEDS: tiZANidine HCl 4 MG TAB PO SCH ×2 (10:57→22:40)
--- NOTE | 2020-03-31 12:27 | PRG ---
DATE OF SERVICE: 03/31/2020 SUBJECTIVE: Ms. Casarez is known to the Pulmonary Service from consultation earlier in the week. She is a 49-year-old female with a smoking history, having begun at age 10. She has advanced COPD and is on home oxygen. She has never been able to quit smoking. She denies that she has ever been referred to scout sniper or have conversation about advanced treatments up to and including lung transplantation. On the floor today, she developed increasing shortness of breath and is returned to the intensive care unit. She is on BiPAP therapy. PHYSICAL EXAMINATION: VITAL SIGNS: Blood pressure 114/80, heart rate 73, saturation 92%. She is on BiPAP. GENERAL: She is awake and responsive. She denies pain. She has somewhat cushingoid features and she appears much older than her stated age, but she has enlarged neck. There is no adenopathy. LUNGS: Very hyperinflated with global decreasing breath sounds, but no wheezing or rales. HEART: Regular rate and rhythm. S1, S2 are normal. ABDOMEN: Obese. There is no organomegaly. She has no edema. LABORATORY DATA: White count today 9200, hemoglobin 15 with hematocrit of 46.7, and platelet count of 138,000. She has normal differential. Blood gas includes pH 7.26, pCO2 of 89, pO2 of 71, and bicarbonate of 38, this is obtained on 2 L oxygen. Electrolytes today include sodium 138, potassium 4.4, chloride 99, CO2 is 34, BUN 19, creatinine 0.8. Liver tests are negative. Her COVID test was negative. She does not have an x-ray today. Her admitting x-ray had shown poor inspiratory effort, more so than anticipated hyperinflation and bullous emphysema. IMPRESSION: Advanced hypercapnic respiratory failure secondary to tobacco abuse and chronic obstructive pulmonary disease, the patient has continued to smoke. She is depressed about the severity of her disease and feeling of helplessness and hopelessness. I have emphasized to her the critical need for smoking cessation and we need to talk to her family to try to get them to be supportive. If she is able to quit smoking, she would potentially be a candidate for lung transplant. I have requested an alpha-1 antitrypsin level as this might help explain the advanced nature of her disease in the setting of a fairly young age. I actually suspect that she may have a component of chronic obstructive pulmonary disease mixed with obstructive sleep apnea. PLAN: She is receiving BiPAP therapy. She has DNR and does not wish to be intubated. I have emphasized the critical need for smoking cessation. We will continue her current COPD therapies. I have asked for an alpha-1 antitrypsin level. There is not much we can add from a pulmonary and hilar perspective. We could add theophylline. We should add Diamox. Critical care rendered today 41 minutes. Job ID: [id number]
[2020-03-31] MEDS: Theophyllin SR 24HR 100 MG CAP PO SCH ×3 (12:54→23:33)
[2020-03-31] MEDS ORDERED: AcetaZOLAMIDE 250 MG TAB PO SCH (13:00)
--- NOTE | 2020-03-31 14:07 | PRG ---
DATE OF SERVICE: 03/31/2020 The patient was seen, evaluated, and discussed with the residents. Please see Dr. Yonis Berg's note for which I agree. I saw the patient this morning, seemed somewhat confused and obtunded and apparently that is not her baseline despite some of her more sedating medicines being held last night, still is obviously slow in thinking and was normal. Decided to get a stat ABG and it showed that her pH had dropped back down to 7.26 and pCO2 is back up to 88 and so will be transferred back to the [facility] for BiPAP. She seems fairly pickwickian and probably needs an official sleep study for home CPAP. Can run that by her middleware developer obviously to help set that up as well. We will continue same antibiotics, steroids, and nebulizers for now. Of note, her COVID test is negative. Job ID: [id number]
[2020-03-31] MEDS: Morphine 4 MG/ML VIAL SLOW IVP PRN (17:59)
[2020-03-31] MEDS: Gabapentin 300 MG CAP PO SCH (21:07)
[2020-03-31] MEDS: levETIRAcetam 500 MG TAB PO SCH (21:07)
[2020-03-31] MEDS: Atorvastatin Calcium 40 MG TAB PO SCH (21:07)
[2020-03-31] MEDS: Mirtazapine 15 MG TAB PO SCH (21:08)
[2020-04-01] MEDS: Albuterol 200 PUFF (6.7GM INHALER) INH SCH ×5 (02:32→16:39)
[2020-04-01 03:23] LABS: #Lymphocytes 0.9 thou/uL (1.20-3.40); #Monocytes 0.4 thou/uL (0.11-0.59); %Basophils 0.1 % (0.0-1.0); %Eosinophils 0.1 % (0.0-10.0); %Lymphocytes 11.1 % (21.0-51.0); %Monocytes 5.1 % (0.0-10.0); %Neutrophils 83.5 % (42.0-75.0); Hemoglobin 14.6 g/dL (12.0-16.0); Mean Corpuscular HGB CONC 31.9 g/dL (32.0-36.0); Mean Corpuscular Hemoglobin 28.8 pg (27.0-31.0); Mean Corpuscular Volume 90.3 fL (78.0-98.0); Mean Platelet Volume 10.3 fL (7.4-10.4); Platelet Count 133 thou/uL (130-400); RBC Distribution Width 15.4 % (11.5-14.5); Red Blood Cell (RBC) Count 5.08 mill/uL (4.20-5.40); White Blood Cell (WBC) Count 8.4 thou/uL (4.8-10.8)
[2020-04-01 03:52] LABS: ALT (SGPT) 9 U/L (8-55); AST (SGOT) 7 U/L (5-34); Albumin 3.2 g/dL (3.5-5.0); Alkaline Phosphatase 70 U/L (40-110); Anion Gap 9 mmol/L (10-20); BUN (Urea Nitrogen) 19 mg/dL (7.0-18.7); Bilirubin, Total Less than 0.2 mg/dL (0.2-1.2); Calc. Creatinine Clearance 144 mL/min (70-130); Calcium 8.6 mg/dL (7.8-10.44); Carbon Dioxide 31 mmol/L (22-29); Chloride 103 mmol/L (98-107); Estimated GFR-MDRD 80; Globulin 2.9 g/dL (2.4-3.5); Glucose 162 mg/dL (70-105); Potassium 4.1 mmol/L (3.5-5.1); Protein, Total 6.1 g/dL (6.0-8.3); Sodium 139 mmol/L (136-145)
[2020-04-01] MEDS: methylPREDNISolone Sod Succ 40 MG VIAL IVP SCH ×3 (05:54→17:23)
--- NOTE | 2020-04-01 06:21 | PDOC.FM ---
- Subjective Subjective: Pt states she is feeling somewhat better this morning. She is still having a headache and some abdominal pain. No nausea or vomiting. - Objective MAR Reviewed: Yes Vital Signs & Weight: Vital Signs (12 hours) Temp Pulse Pulse Ox 04/01/20 03:32 97.9 F 04/01/20 03:16 61 93 L 03/31/20 23:26 98.2 F 03/31/20 22:53 67 03/31/20 19:49 74 03/31/20 19:47 94 L 03/31/20 19:36 98.2 F Weight Weight 103.283 kg Most Recent Monitor Data Heart Rate from ECG 57 NIBP 117/73 NIBP BP-Mean 87 Respiration from ECG 11 SpO2 92 I&O: 03/30/20 03/31/20 04/01/20 06:59 06:59 06:59 Intake Total 3880 1000 780 Output Total 900 2100 Balance 2980 1000 -1320 Result Diagrams: 04/01/20 03:00 04/01/20 03:00 Phys Exam - Physical Examination Constitutional: NAD On bipap Neck: no JVD Improved air movement, mild end expiratory wheezing Cardiovascular: RRR, no significant murmur Gastrointestinal: soft, no distention, positive bowel sounds Musculoskeletal: no edema, pulses present Neurological: moves all 4 limbs Psychiatric: A&O x 3 Skin: cap refill <2 seconds Dx/Plan (1) Anxiety Code(s): F41.9 - ANXIETY DISORDER, UNSPECIFIED Status: Acute (2) Bipolar disorder Code(s): F31.9 - BIPOLAR DISORDER, UNSPECIFIED Status: Acute (3) CAD (coronary artery disease) Code(s): I25.10 - ATHSCL HEART DISEASE OF [place] CORONARY ARTERY W/O ANG PCTRS Status: Acute (4) COPD exacerbation Code(s): J44.1 - CHRONIC OBSTRUCTIVE PULMONARY DISEASE W (ACUTE) EXACERBATION Status: Acute (5) HLD (hyperlipidemia) Code(s): E78.5 - HYPERLIPIDEMIA, UNSPECIFIED Status: Acute (6) HTN (hypertension) Code(s): I10 - ESSENTIAL (PRIMARY) HYPERTENSION Status: Acute (7) Tobacco abuse Code(s): Z72.0 - TOBACCO USE Status: Acute - Plan Plan: Acute hypoxic hypercapnic respiratory failure 2/2 #2 -Pt was moved back to the ICU yesterday morning for hypercapnea -Repeat abg this am, pts weight likely contributing her condition COPD exacerbation -Continue prednisone -Azithromycin -Continue duonebs and respiratory support -Continue montelukast -Covid negative -May be ready to discharge in 1-2 days Headache -S/P tylenol, ibuprofen, fluids, mag -Would consider reglan and benadryl if unimproved Mild abdominal pain -CT abdomen to assess for causes of her pain when more stable -Continue morphine for 2 more doses, transition to PO medication thereafter HTN -Will continue home medications HLD -Now on atorvastatin CAD -Continue home meds Anxiety -Continue home meds Bipolar disorder -Continue home meds
[2020-04-01 08:30] LABS: Actual Bicarbonate (HCO3a) 31.9 mEq/L (22-28); Base Excess (BEa) 4.4 mEq/L (-2.0 to +3.0); Calcium, Ionized (arterial) 1.26 mmol/L (1.12-1.30); Carboxyhemoglobin (COHb) 1.1 gm% (0.0-3.0); Hemoglobin (Hb) 15.8 g/dL (12.0-16.0); O2 Tension (PaO2), arterial 64.3 mmHg (80.0-100.0); Potassium - ABG Lab 3.86 mmol/L (3.70-5.30); pH, Arterial 7.35 (7.35-7.45)
[2020-04-01 08:31] LABS: Puncture Site RRA
[2020-04-01] MEDS: Enoxaparin Sodium 40 MG/0.4 ML SYRINGE SC SCH (10:53)
[2020-04-01] MEDS: Aspirin 81 mg Enteric Coated Tablet PO SCH (10:54)
[2020-04-01] MEDS: Prazosin HCl 1 MG CAP PO SCH (10:55)
[2020-04-01] MEDS: tiZANidine HCl 4 MG TAB PO SCH ×2 (10:56→21:04)
[2020-04-01] MEDS: Theophyllin SR 24HR 100 MG CAP PO SCH (10:56)
[2020-04-01] MEDS: Montelukast Sodium 10 mg Tablet PO SCH (10:56)
[2020-04-01] MEDS: AcetaZOLAMIDE 250 MG TAB PO SCH (10:57)
[2020-04-01] MEDS: Propranolol 40 MG TAB PO SCH (10:58)
[2020-04-01] MEDS: Promethazine 25 MG TAB PO SCH ×2 (10:58→20:46)
[2020-04-01] MEDS: Azithromycin 250 MG in Sodium Chloride 0.9% 250 ML 250 ML IVPB SCH (10:59)
[2020-04-01] MEDS: Lisinopril 10 MG TAB PO SCH (11:00)
[2020-04-01] MEDS: clonazePAM 1 MG TAB PO SCH ×3 (11:02→23:31)
[2020-04-01] MEDS: busPIRone HCl 10 MG TAB PO SCH ×2 (11:03→20:48)
[2020-04-01] MEDS: DULoxetine 60 MG CAP PO SCH (11:03)
[2020-04-01] MEDS: Fluticasone Propionate Nasal Spray 16 gm Bottle NASAL SCH (11:04)
--- NOTE | 2020-04-01 12:01 | PRG ---
DATE OF SERVICE: 04/01/2020 SUBJECTIVE: She has been on BiPAP the bulk of the past 24 hours, removing only for briefly for respite and for meals. She feels that there has been a subjective improvement. She denies active cough for sputum. She is still a little despondent about the severity of her lung disease. OBJECTIVE: VITAL SIGNS: Blood pressure 148/97, heart rate is 59, respiratory rate is 19, saturation is 94%. GENERAL: She is currently afebrile. She has cushingoid features. She is alert and arouses easily. LUNGS: Globally hyperinflated. I do not hear wheezes or rales. HEART: Regular rate and rhythm without murmur. ABDOMEN: Obese, soft. There is no organomegaly. EXTREMITIES: She has trace edema. There is no cyanosis or clubbing. LABORATORY DATA: White count 8400, hemoglobin is 14.6. Blood gas includes pH 7.35, CO2 of 59, PO2 of 64, bicarbonate of 31. This was obtained on BiPAP 12/5 with oxygen 25%. Chemistries notable for sodium 139, potassium 4.1, chloride 103, CO2 is 31, BUN 19, creatinine 0.7. IMPRESSION: Chronic obstructive pulmonary disease with acute on chronic hypercapnic respiratory failure. She is currently on BiPAP. Blood gas this morning would suggest that she is a candidate for home noninvasive ventilatory device. I have encouraged her to be out of bed as possible. We will try to use BiPAP at night and on a p.r.n. basis during the day. Continue smoking cessation is appropriate. Alpha-1 antitrypsin level is pending. Thus far, she has tolerated theophylline and I would check a theophylline level in a couple of days. Job ID: [id number] [facility]
--- NOTE | 2020-04-01 12:04 | PRG ---
DATE OF SERVICE: 04/01/2020 ADMITTING ATTENDING: Marisa Hernandez MD CONSULTS: At this time, Dr. Paulie Baez MD, Pulmonology. PROCEDURES: At this time includes a CT brain showing maxillary and ethmoid sinus disease. No acute intracranial disease and a chest x-ray shows poor inspiratory effort with some mild vascular crowding at the base. No significant acute process. HPI/HOSPITAL COURSE: This is a 49-year-old female with past medical history of COPD on 2 L at home at baseline, who presented to the ER with a chief complaint of worsening cough, shortness of breath started about a week ago. She reports that her COPD is poorly controlled and continues to smoke. The patient was admitted to the [facility] on BiPAP, is currently on azithromycin, albuterol inhalers, acetazolamide, Flonase, montelukast, and IV methylprednisolone for her COPD exacerbation. In the ER, she received magnesium. The patient was deemed to be COVID negative. Since admission, the patient has done fairly well while on BiPAP, however, 2 days ago she was seen up walking around in no acute distress on room air and was prematurely sent to medical floor at that point. She was seen the following day, somnolent. ABG indicated a pCO2 of 88 and the patient was promptly sent back to the [facility] for BiPAP. This morning, she states that she is much improved as is her ABG. She will likely need to remain on BiPAP throughout the day, and especially at night if she has JJ. She is having meals intermittently throughout the day and taking her medications at the time while she is off BiPAP. Of note, she has been complaining of abdominal pain. Since admission, she sounds like she has had an extensive workup including EGD and colonoscopy with the GI doctor. She has reported history of IBS, but extending having a pain. Initially, this IBS diagnosis was not known. She was placed on morphine for her pain management for a total of 4 doses, which during this hospitalization she has only used 3. She will likely need to follow up outpatient. There was a CT abdomen and pelvis ordered, however, was not able to be completed due to her respiratory status at this point. Additionally, she has had a headache that has not improved with Tylenol and I would recommend Reglan and Benadryl if she continues to have this headache. Chronic problems include hypertension, hyperlipidemia, CAD, anxiety, and bipolar, which she is continuing her home medications for. If there are any further questions regarding this patient's care, please feel free to contact me. Job ID: [id number]
[2020-04-01] MEDS: Morphine 4 MG/ML VIAL SLOW IVP PRN (12:30)
[2020-04-01 16:06] LABS: Bacteria/HPF None Seen HPF (None Seen); Bilirubin Negative (Negative); Blood, Urine Negative (Negative); Clarity Clear (Clear); Glucose, Urine (Dipstick) Normal (Negative); Leukocyte Negative Leu/uL (Negative); Nitrite Negative (Negative); Protein, Urine (Dipstick) Negative (Neg-Trace); RBC/HPF 0-3 HPF (0-3); Squamous Epithelial 0-3 HPF (0-3); Urobilinogen Normal mg/dL (Less than 2); WBC/HPF 0-3 HPF (0-3)
[2020-04-01 16:11] LABS: Urine Culture Reflex No No
[2020-04-01] MEDS ORDERED: Morphine 4 MG/ML VIAL SLOW IVP SCH (16:15)
--- NOTE | 2020-04-01 16:48 | PRG ---
DATE OF SERVICE: 04/01/2020 Please see the note from Dr. Yonis Berg for which I agree. The patient was seen, evaluated, discussed, and examined with the residents by bedside. Yesterday, after being moved to the IM and being on BiPAP, she for the most part has improved. ABG this morning shows a pH of 7.3, pCO2 of 59, PO2 of 64. She is still a little bit lethargic on talking to her and her lungs sound fairly good. I think some of this is COPD, some of this is an obstructive sleep apnea type picture probably as well as she is certainly set up for a Pickwickian syndrome and obstructive sleep apnea secondary to her size and comorbidities. I think they are slowly improving. With a high of a pCO2, we may want to keep her in IMCU until she continues to improve. May want to repeat a chest x-ray today, still better feel for volume status. Job ID: [id number]
[2020-04-01] MEDS: Acetaminophen 500 MG TAB PO PRN (16:52)
[2020-04-01] MEDS: Gabapentin 300 MG CAP PO SCH (20:47)
[2020-04-01] MEDS: Atorvastatin Calcium 40 MG TAB PO SCH (20:47)
[2020-04-01] MEDS: Mirtazapine 15 MG TAB PO SCH (20:48)
[2020-04-01] MEDS: levETIRAcetam 500 MG TAB PO SCH (20:48)
[2020-04-01] MEDS ORDERED: Propranolol 40 MG TAB PO SCH (21:00)
[2020-04-01] MEDS ORDERED: Prazosin HCl 1 MG CAP PO SCH (21:00)
[2020-04-01] MEDS ORDERED: DULoxetine 60 MG CAP PO SCH (21:00)
[2020-04-02] MEDS: Albuterol 200 PUFF (6.7GM INHALER) INH SCH ×4 (00:23→11:38)
[2020-04-02] MEDS: methylPREDNISolone Sod Succ 40 MG VIAL IVP SCH ×2 (00:28→05:38)
[2020-04-02 03:22] LABS: #Lymphocytes 0.9 thou/uL (1.20-3.40); #Monocytes 0.5 thou/uL (0.11-0.59); #Neutrophils 7.2 thou/uL (1.40-6.50); %Basophils 0.4 % (0.0-1.0); %Eosinophils 0.4 % (0.0-10.0); %Lymphocytes 10.8 % (21.0-51.0); %Monocytes 5.8 % (0.0-10.0); %Neutrophils 82.6 % (42.0-75.0); Hemoglobin 15.1 g/dL (12.0-16.0); Mean Corpuscular HGB CONC 31.2 g/dL (32.0-36.0); Mean Corpuscular Hemoglobin 28.2 pg (27.0-31.0); Mean Corpuscular Volume 90.3 fL (78.0-98.0); Mean Platelet Volume 10.5 fL (7.4-10.4); Platelet Count 145 thou/uL (130-400); RBC Distribution Width 15.5 % (11.5-14.5); Red Blood Cell (RBC) Count 5.37 mill/uL (4.20-5.40); White Blood Cell (WBC) Count 8.7 thou/uL (4.8-10.8)
[2020-04-02 03:40] LABS: ALT (SGPT) 10 U/L (8-55); AST (SGOT) 10 U/L (5-34); Albumin 3.3 g/dL (3.5-5.0); Alkaline Phosphatase 67 U/L (40-110); Anion Gap 9 mmol/L (10-20); BUN (Urea Nitrogen) 22 mg/dL (7.0-18.7); Bilirubin, Total Less than 0.2 mg/dL (0.2-1.2); Calc. Creatinine Clearance 121 mL/min (70-130); Calcium 8.6 mg/dL (7.8-10.44); Carbon Dioxide 29 mmol/L (22-29); Chloride 103 mmol/L (98-107); Estimated GFR-MDRD 65; Glucose 174 mg/dL (70-105); Potassium 3.8 mmol/L (3.5-5.1); Protein, Total 6.3 g/dL (6.0-8.3); Sodium 137 mmol/L (136-145)
--- NOTE | 2020-04-02 09:10 | PDOC.FM ---
- Subjective Subjective: Pt states she is doing well and did well overnight. When I saw her in the traffic engineer she had BiPAP on and was sat-ing well; later in the morning she was on _ ___L NC and sat-ing well. She still has a wet cough but states her SOB is improved with BiPAP. She states she is eating well but that her last BM was before she came into the hospital which is normal for her. She has a history of abdominal issues with neg EGD and colonoscopy that has been attributed to IBS but never officially diagnosed. CT abdomen was ordered but has not been completed because the contrast makes her vomit. She states she has cut back her smoking from 1 ppd to less than 1/2 ppd. She states she "would have quit by now if she could" but is willing to continue working on decreasing the amount she smokes. She feels quitting smoking will not improve her current situation anyway so she seems reluctant to attempt quitting. Pulmonology consult stated lung transplant is her only option. - Objective Vital Signs & Weight: Vital Signs (12 hours) Temp Pulse Pulse Ox 04/02/20 08:02 96 04/02/20 08:00 96 04/02/20 07:27 97.0 F L 04/02/20 03:31 98.3 F 04/02/20 00:21 74 04/01/20 23:27 98.7 F Weight Weight 103.283 kg Most Recent Monitor Data Heart Rate from ECG 65 NIBP 121/77 NIBP BP-Mean 91 Respiration from ECG 12 SpO2 95 I&O: 04/01/20 04/02/20 04/03/20 06:59 06:59 06:59 Intake Total 780 1340 Output Total 2100 1300 700 Balance -1320 40 -700 Result Diagrams: 04/02/20 02:52 04/02/20 02:52 Phys Exam - Physical Examination Constitutional: NAD Smells of cigarette smoke. Disheveled. Neck: supple Respiratory: wheezing present Expiratory wheezing, rales present b/l. Decreased sounds in lower lobes b/l Cardiovascular: RRR, no significant murmur Heart sounds difficult to appreciate likely 2/2 hyperinflation Gastrointestinal: soft, positive bowel sounds (Significant bowel sounds diffusely) Tender to palpation diffusely which she states is unchanged Neurological: moves all 4 limbs Psychiatric: normal affect, A&O x 3 Deviation from normal: Slow speech Skin: no rash Dx/Plan - Plan Plan: Dx/Plan (1) Anxiety Code(s): F41.9 - ANXIETY DISORDER, UNSPECIFIED Status: Acute (2) Bipolar disorder Code(s): F31.9 - BIPOLAR DISORDER, UNSPECIFIED Status: Acute (3) CAD (coronary artery disease) Code(s): I25.10 - ATHSCL HEART DISEASE OF [place] CORONARY ARTERY W/O ANG PCTRS Status: Acute (4) COPD exacerbation Code(s): J44.1 - CHRONIC OBSTRUCTIVE PULMONARY DISEASE W (ACUTE) EXACERBATION Status: Acute (5) HLD (hyperlipidemia) Code(s): E78.5 - HYPERLIPIDEMIA, UNSPECIFIED Status: Acute (6) HTN (hypertension) Code(s): I10 - ESSENTIAL (PRIMARY) HYPERTENSION Status: Acute (7) Tobacco abuse Code(s): Z72.0 - TOBACCO USE Status: Acute - Plan Plan: Acute hypoxic hypercapnic respiratory failure 2/2 #2 -Pt was moved back to the ICU Thursday morning for hypercapnea -Repeat abg this am showed: pH of 7.35 increased from 7.23 the day before; pCO2 elevated at 59 but down from 78.8 the day before; pO2 low at 64.3 up from 54.5 the day before. -Pts weight likely contributing her condition COPD exacerbation -D/c IV Solumedrol and start oral prednisone -D/c Azithromycin s/p 4 days of administration (04/02) -BNP 36.8 -Continue duonebs and respiratory support -Continue montelukast -Covid negative -On BiPAP overnight due to decompensation and AMS. Desats to 70s when BiPAP is taken off -a1-antitrypsin ordered and pending Headache -Endorses chronic migraines "since the 3rd grade" that are helped but not resolved by Percocet. -S/P tylenol, ibuprofen, fluids, mag but states it is not improving -Can consider reglan and benadryl if unimproved Mild abdominal pain -CT abdomen ordered to assess for cause of her abdominal pain but it has not been completed because she vomits up the contrast -History of abdominal pain with neg EGD and Colonoscopy performed previously -Morphine has been d/c HTN -Will continue home medications HLD -Now on atorvastatin CAD -Continue home meds Anxiety -Continue home meds Bipolar disorder -Continue home meds Dispo: Pt is requiring IV Abx and CT abd pending, so LOS >48h. Addendum - Attending - Attending Attestation Date/Time: 04/02/20 3813 I personally evaluated the patient and discussed the management with Dr. Rebecca Katz I agree with the History, Examination, Assessment and Plan documented above with any addition or exceptions noted below - Patient without complaints. Afebrile VSS. A/P: 1) COPD exacerbation - using BiPap at night and NC during day. Wean as tolerated. Changed to po steroids. 2) HTN- stable. 3) Bipolar- sedating medications decreased; will continue to monitor.
[2020-04-02] MEDS: Azithromycin 250 MG in Sodium Chloride 0.9% 250 ML 250 ML IVPB SCH (09:42)
[2020-04-02] MEDS: busPIRone HCl 10 MG TAB PO SCH (09:43)
[2020-04-02] MEDS: Lisinopril 10 MG TAB PO SCH (09:43)
[2020-04-02] MEDS: Theophyllin SR 24HR 100 MG CAP PO SCH (09:43)
[2020-04-02] MEDS: tiZANidine HCl 4 MG TAB PO SCH (09:43)
[2020-04-02] MEDS: Aspirin 81 mg Enteric Coated Tablet PO SCH (09:43)
[2020-04-02] MEDS: AcetaZOLAMIDE 250 MG TAB PO SCH (09:44)
[2020-04-02] MEDS: Montelukast Sodium 10 mg Tablet PO SCH (09:44)
[2020-04-02] MEDS: Promethazine 25 MG TAB PO SCH (09:44)
[2020-04-02] MEDS: Fluticasone Propionate Nasal Spray 16 gm Bottle NASAL SCH (09:45)
[2020-04-02] MEDS: Enoxaparin Sodium 40 MG/0.4 ML SYRINGE SC SCH (09:45)
[2020-04-02] MEDS: clonazePAM 1 MG TAB PO SCH (09:45)
[2020-04-02 10:00] VITALS: BP 114/83
--- NOTE | 2020-04-02 11:29 | PRG ---
DATE OF SERVICE: 04/02/2020 SUBJECTIVE: This morning, she is lethargic, but arousable. OBJECTIVE: VITAL SIGNS: Temperature 97, blood pressure 140/83, saturations 96% on room air, respiratory rate 18. CHEST: Decreased breath sounds. No wheezing. CARDIAC: Normal S1 and S2. No gallops. ABDOMEN: No masses. ASSESSMENT AND PLAN: Morbid obesity, sleep apnea, respiratory failure, chronic obstructive pulmonary disease. PLAN: Continue neb treatments, p.o. prednisone. Avoid excessive sedation. Question is whether we need to cut back on some of her psych medicine. We will follow. Job ID: [id number]
[2020-04-02] MEDS ORDERED: clonazePAM 0.5 MG TAB PO SCH (15:00)
[2020-04-02 15:02] VITALS: TEMP 97.7
--- NOTE | 2020-04-02 17:29 | PDOC.PALPN ---
Palliative Progress Note - Subjective Awake, but sleepy. States she is "tired and sick of the hospital". Complains of pain but most pronounced to right shoulder from an old injury. Confirms shortness of breath with minimal activity. - Objective Vital Signs: Vital Signs - Most Recent Temp Pulse Resp BP Pulse Ox 97.7 F 72 17 114/83 97 04/02/20 15:01 04/02/20 14:20 04/02/20 14:20 04/02/20 09:43 04/02/20 14:20 - Physical Exam Constitutional: ill appearing HEENT: EOMI, moist MMs, sclera anicteric Respiratory: diminished lung sound, wheezing present Cardiovascular: RRR Deviation from normal: Distant heart sounds Gastrointestinal: soft Genitourinary: incontinent, stress incontinence Musculoskeletal: no clubbing, pulses present Neurology: moves all 4 limbs, no focal deficits Deviation from normal: slurred speech Skin: cap refill <2 seconds, no rash Psychiatric: A&O x 3, depressed - Assessment (1) Palliative care encounter Code(s): Z51.5 - ENCOUNTER FOR PALLIATIVE CARE Current Visit: Yes Status: Acute (2) Bipolar disorder Code(s): F31.9 - BIPOLAR DISORDER, UNSPECIFIED Current Visit: Yes Status: Acute (3) CAD (coronary artery disease) Code(s): I25.10 - ATHSCL HEART DISEASE OF [place] CORONARY ARTERY W/O ANG PCTRS Current Visit: Yes Status: Acute (4) COPD exacerbation Code(s): J44.1 - CHRONIC OBSTRUCTIVE PULMONARY DISEASE W (ACUTE) EXACERBATION Current Visit: Yes Status: Acute (5) Tobacco abuse Code(s): Z72.0 - TOBACCO USE Current Visit: Yes Status: Acute - Plan Plan: Life review with patient. She has been with her since 2006, they travel for his work and live in an . "Home" is [place]. She states her mother picks up her prescriptions and mails them to where they are. She has one son and one granddaughter. States she has been on hospice in the past and would life to be re-evaluated for hospice care. Discussed treatment verses symptom management. States intermittant home O2 use. Teaching in relation to no O2 use when she is smoking. Will communicate with Medical Team and Tie Man initiate hospice consult and evaluation. Patient confirms she is a DNAR, will have S Maikol follow up to complete OOHDNAR and Directive to Physician. Please also refer to Rashel Lacy RN notes in note section. [60] minutes spent on this encounter with >50% of the time in counseling and coordination of care. - ROS Constitutional: loss appetite, weakness ENT: alteration in dentition, other (negative for throat irritation, congestion) Respiratory: shortness of breath, shortness of breath with extertion, other ( cough) Gastrointestinal: constipation, diarrhea Genitourinary: incontinence, stress incontinence Musculoskeletal: arthritis/arthralgias Neurological: other (denies numbness, changes in taste or ability to smell) Skin: other (negative for rash, pruitis) Psychological: depression, insomia
--- NOTE | 2020-04-02 17:42 | PDOC.FMACP ---
Advance Care Planning - Problem (1) Palliative care encounter Status: Acute Code(s): Z51.5 - ENCOUNTER FOR PALLIATIVE CARE (2) Bipolar disorder Status: Acute Code(s): F31.9 - BIPOLAR DISORDER, UNSPECIFIED (3) CAD (coronary artery disease) Status: Acute Code(s): I25.10 - ATHSCL HEART DISEASE OF [place] CORONARY ARTERY W/O ANG PCTRS (4) COPD exacerbation Status: Acute Code(s): J44.1 - CHRONIC OBSTRUCTIVE PULMONARY DISEASE W (ACUTE ) EXACERBATION (5) Tobacco abuse Status: Acute Code(s): Z72.0 - TOBACCO USE - Note Participants: patient, palliative care Summary: Advanced Care Planning was discussed. Mrs Casarez allowed an opportunity to decline. The diagnosis, prognosis and goals of care were discussed. Appropriate forms and documentation to accomplish the goals of care were discussed. All questions were answered. Confirmed she wishes to continue to remain with no resuscitation measures or aggressive therapies. Requesting transition to hospice services to mitigate symptoms related to terminal condition. Lima Lassiter registrar with The Palliative Care Team will assist with completion of any outstanding forms that are needed, including OOHDNAR and Directive to Physician. Time Spent (mins): 20
--- NOTE | 2020-04-02 18:20 | PDOC.EVN ---
Event Note - Event Note Event Note: Residents were paged and notified pt had left the building AMA. I called patient and recommended returning for readmission. I discussed the risks for not returning for care, including worsening condition and possible . Pt states she wants to be comfortable at home but home hospice is not an option because she and her travel all across the [place] for his work and never know where they are going so there is no way for them to set up services. She was started on Theophylline but despite leaving AMA we have no way of checking her levels so I recommended she f/u with her PCP or with us in clinic, as soon as possible. She had completed her abx regimen therefore did not need a refill.
[2020-04-02] MEDS ORDERED: Mometasone 200 MCG/Formoterol 5 MCG 120 PUFF INHALER INH SCH (18:30)
[2020-04-02] MEDS ORDERED: predniSONE 20 MG TAB PO SCH (21:00)
[2020-04-02] MEDS ORDERED: Mirtazapine 30 MG TAB PO SCH (21:00)
[2020-04-02] MEDS ORDERED: Gabapentin 100 MG CAP PO SCH (21:00)
--- NOTE | 2020-04-03 12:11 | DIS ---
DATE OF ADMISSION: 03/28/2020 DATE OF DISCHARGE: 04/02/2020 She left AMA April 02, 2020. RESIDENT: Coty Mcdonald MD ADMITTING ATTENDING: Marisa Hernandez MD DISCHARGE ATTENDING: Delicia Pina MD. CONSULTS: Pulmonology - Dr. Baez, then Dr. Rader, then Dr. Hatfield; Palliative Care. PROCEDURES: CXR performed on 03/28 showed poor inspiratory effort, but no significant acute process. Head CT w/o contrast showed maxillary and ethmoid sinus disease, but no acute intracranial abnormalities (03/28) She was COVID tested, which returned negative on 03/31 PRIMARY DIAGNOSES: Acute hypoxic respiratory failure secondary to COPD exacerbation, as well as idiopathic abdominal pain. SECONDARY DIAGNOSES: COPD; one IN; CAD s/p stent placement; obstructive sleep apnea; HTN; HLD; bipolar disorder; borderline personality disorder. DISCHARGE MEDICATIONS: 1. Prazosin 2 mg at bedtime. 2. Duloxetine 60 mg at bedtime. 3. Propanolol 80 mg at bedtime. 4. Ranitidine 150 mg as needed. 5. Prilosec 20 mg b.i.d. 6. Furosemide 40 mg b.i.d. p.r.n. 7. Flonase one spray each naris b.i.d. 8. Mirtazapine 45 mg at bedtime. 9. Atorvastatin 40 mg daily. 10. Albuterol p.r.n. 11. Gabapentin 600 mg at bedtime. 12. Montelukast 10 mg daily. 13. Promethazine 25 mg b.i.d. 14. Buspirone 10 mg b.i.d. 15. Seroquel 300 mg at bedtime. 16. Clonazepam 2 mg t.i.d. 17. Tizanidine 4 mg b.i.d. 18. Levetiracetam 1000 mg at bedtime. DISCONTINUED MEDICATIONS: 1. Lovenox 40 mg once a day. 2. Lisinopril 10 mg daily. 3. Mometasone/formoterol inhaler b.i.d. 4. MiraLAX daily p.r.n. 5. Prednisone b.i.d. 6. DuoNebs q.4. 7. Theophylline HISTORY OF PRESENT ILLNESS/HOSPITAL COURSE: The patient was admitted to the ED with complaints of worsening cough and shortness of breath that she stated had started about a week prior. She endorsed smoking less than 1/2 ppd, down from one ppd. She was not motivated to quit because she said her prognosis will not change anyway. She stated she was on 2 L of oxygen at home as her baseline. She reported that her chronic COPD is poorly controlled and endorsed a chronic nonproductive cough, chest tightness, wheezing, and feeling poor overall. She endorsed nausea, vomiting, and diarrhea that started one day prior. The patient had been traveling to [place] in [place] with her who places alarms in jails. The patient was doing well on nasal cannula, but desaturated overnight resulting in AMS. It was suspected this was due to her JJ and she was moved to [facility] and placed on BiPAP overnight. The BiPAP appeared to help her AMS and brought her oxygen levels back up, so during the day, she was moved back to the medical floor on nasal cannula. At night she desaturated again and had AMS so she had to be put back on BiPAP in the IMCU. Dr. Baez recommended continuation of BiPAP, nebulization treatments, IV steroids, and empiric azithromycin. On 03/31, she was seen by Dr. Rader who emphasized the need for smoking cessation stating that would be her only chance to be a candidate for lung transplant which was the only option she had left because there was not much left that could be done from a pulmonary or hilar perspective. He requested an alpha-1 antitrypsin level to see if that could explain the advanced nature of her disease and stated her on theophylline. Dr. Hatfield saw her on 04/02 and recommended continuation of nebulizer treatments, changing the steroid to p.o. prednisone and limiting her sedating medications by decreasing her psych meds to avoid excessive sedation which could be contributing to her respiratory difficulties. Palliative Care met with her to discuss palliative and hospice options. The patient stated she had been on hospice in the past and wanted to be re- evaluated for it. She confirmed she is a DNR during this time. It appears that Mrs. Casarez requested transition to hospice services to manage the symptoms of her terminal conditions. In regard to her idiopathic abdominal pain, Mrs. Casarez stated IBS is suspected, but had not been officially diagnosed. She had had an outpatient EGD and colonoscopy, both of which were negative. Abdominal CT with contrast was ordered but could not be performed due to Mrs. Casarez vomiting the contrast so it was cancelled. On the evening of 04/02, the residents were paged and notified that patient had left the building AMA. I called the patient and recommended she return for readmission. I discussed the risks for not returning to care, but the patient stated she wanted to be her and since he traveled around the [place], she would not be able to be present with him if she did home hospice. While she was started on theophylline during her admission, we have no way of checking her levels so it was not continued outpatient and I did recommend she follow up with us in clinic or with her PCP to check those levels. She had finished her antibiotic regimen prior to leaving , therefore she did not a need a refill of that either. Job ID: [id number] MTDD
== END 2020-04-02 18:03 | disposition left against medical advice (07) | DRG 189 ==
LOC: ERS 15:02 → IMCU/EMU 17:56 → T4-A 03-30 14:22 → IMCU/EMU 03-31 11:25
PROVIDERS: ADMIT Student in an Organized Health Care Education/Training Program; ATTEND Student in an Organized Health Care Education/Training Program
PROC: 5A09357 Assistance with Respiratory Ventilation, Less than 24 Consecutive Hours, Continuous Positive Airway Pressure (ICD-10-PCS; principal; 2020-03-29)
PROC: 5A09357 Assistance with Respiratory Ventilation, Less than 24 Consecutive Hours, Continuous Positive Airway Pressure (ICD-10-PCS; 2020-03-31)
DX: J96.01 Acute respiratory failure with hypoxia (principal); J44.1 Chronic obstructive pulmonary disease with (acute) exacerbation; Z20.828 Contact with and (suspected) exposure to other viral communicable diseases; E78.5 Hyperlipidemia, unspecified; Z66 Do not resuscitate; I10 Essential (primary) hypertension; G47.33 Obstructive sleep apnea (adult) (pediatric); F31.9 Bipolar disorder, unspecified; R10.9 Unspecified abdominal pain; F41.9 Anxiety disorder, unspecified; J96.02 Acute respiratory failure with hypercapnia; F60.3 Borderline personality disorder; I25.10 Atherosclerotic heart disease of native coronary artery without angina pectoris; G43.909 Migraine, unspecified, not intractable, without status migrainosus; F17.210 Nicotine dependence, cigarettes, uncomplicated; I25.2 Old myocardial infarction; Z88.5 Allergy status to narcotic agent; Z95.5 Presence of coronary angioplasty implant and graft; Z98.51 Tubal ligation status; Z71.6 Tobacco abuse counseling
CPT/HCPCS: 36415; 70450; 71045; 80053; 80306; 80307; 81001; 82103; 82553; 82728; 82805; 83605; 83615; 83690; 83880; 84145; 84484; 85025; 86140; 87635; 93005; 94640; 94660; 96365; 96367; 96375; J0456; J0696; J1650; J2060; J2270; J2405; J2550; J2920; J3475; J7050; J7512; J7620; Q0162; Q0169; U0003

== ENCOUNTER 2020-04-20 16:06 | Emergency (ER) | payer OTHER, MEDICAID | END 2020-04-20 17:57 | disposition home or self-care (01) | LOC: ERS 16:06 | DX: R06.02 Shortness of breath (principal); Z20.828 Contact with and (suspected) exposure to other viral communicable diseases; I25.2 Old myocardial infarction; F41.9 Anxiety disorder, unspecified; F31.9 Bipolar disorder, unspecified; G47.9 Sleep disorder, unspecified; F17.210 Nicotine dependence, cigarettes, uncomplicated; Z79.899 Other long term (current) drug therapy | CPT/HCPCS: 99284 ==